=== PATIENT | female | born 1980 | race Two or more races ===

== ENCOUNTER 2020-07-02 00:45 | Emergency (ER) | payer MEDICAID ==
[~2020-07-02] VITALS: Ht 162.6 cm; Wt 82.0 kg
[~2020-07-02 00:45] MED LIST: PREN-88 PO
[2020-07-02 03:45] VITALS: BP 165/98
== END 2020-07-02 03:46 | disposition home or self-care (01) ==
LOC: ER 00:45
DX: S50.12XA Contusion of left forearm, initial encounter (principal); S20.212A Contusion of left front wall of thorax, initial encounter; Y04.0XXA Assault by unarmed brawl or fight, initial encounter; Y93.89 Activity, other specified; Y92.89 Other specified places as the place of occurrence of the external cause; Y99.8 Other external cause status
CPT/HCPCS: 99283